=== PATIENT | male | born 1970 | race Caucasian/White ===

== ENCOUNTER 2018-02-14 11:05 | Emergency (ER) | payer OTHER ==
[~2018-02-14] VITALS: Ht 182.9 cm; Wt 112.0 kg
[~2018-02-14 11:05] MED LIST: AUGMENTIN 875-1 EACH PO; CIPROFLOXACIN500 M1 PO; FLAGYL500 MG PO; NORCO 5-325 TA1 EACH PO
[2018-02-14] MEDS ORDERED: KEFLEX500 M1 PO (12:42)
[2018-02-14 12:50] VITALS: BP 126/72
== END 2018-02-14 12:52 | disposition home or self-care (01) ==
LOC: M.ERS 11:05
DX: S61.211A Laceration without foreign body of left index finger without damage to nail, initial encounter (principal); S61.012A Laceration without foreign body of left thumb without damage to nail, initial encounter; K21.9 Gastro-esophageal reflux disease without esophagitis; L40.9 Psoriasis, unspecified; W27.0XXA Contact with workbench tool, initial encounter; Y93.89 Activity, other specified; Y92.89 Other specified places as the place of occurrence of the external cause; Y99.8 Other external cause status

== ENCOUNTER 2019-05-18 19:07 | Emergency (ER) | payer OTHER ==
[~2019-05-18] VITALS: Ht 180.3 cm; Wt 104.3 kg
[~2019-05-18 19:07] MED LIST changes: +KEFLEX500 M1 PO
[2019-05-18 20:52] VITALS: BP 135/87
== END 2019-05-18 20:53 | disposition home or self-care (01) ==
LOC: M.ERS 19:07
DX: S93.692A Other sprain of left foot, initial encounter (principal); K21.9 Gastro-esophageal reflux disease without esophagitis; X50.0XXA Overexertion from strenuous movement or load, initial encounter; Y93.89 Activity, other specified; Y92.096 Garden or yard of other non-institutional residence as the place of occurrence of the external cause; Y99.8 Other external cause status

== ENCOUNTER 2020-04-04 21:22 | Emergency (ER) | payer OTHER ==
[~2020-04-04] VITALS: Ht 182.9 cm; Wt 111.1 kg
[2020-04-04] MEDS ORDERED: CYCLOBENZAPRINE5 MG PO (23:40)
[2020-04-04] MEDS ORDERED: HYDROCODON-ACE1 EAC7 PO (23:40)
[2020-04-04] MEDS ORDERED: TORADOL 10 MG T10 MG PO (23:40)
[2020-04-04 23:51] VITALS: BP 120/65
== END 2020-04-04 23:51 | disposition home or self-care (01) ==
LOC: M.ERS 21:22
DX: S39.012A Strain of muscle, fascia and tendon of lower back, initial encounter (principal); S73.192A Other sprain of left hip, initial encounter; K21.9 Gastro-esophageal reflux disease without esophagitis; X58.XXXA Exposure to other specified factors, initial encounter; Y93.6A Activity, physical games generally associated with school recess, summer camp and children; Y92.89 Other specified places as the place of occurrence of the external cause; Y99.8 Other external cause status